=== PATIENT | male | born 1990 | race Caucasian/White ===

== ENCOUNTER 2018-05-03 13:43 | Day surgery (SDC) | payer OTHER, SELFPAY ==
--- NOTE | 2018-05-03 13:27 | P.HP_ITS ---
History of Present Illness Date Patient Seen: 05/03/18 Chief complaint: colonoscopy [id number] Narrative: 27-year-old male with a history of hemorrhoids and rectal bleeding here for further evaluation. Please refer to our office note 04/18/2018 for further details. The patient has no significant changes to his history and physical examination from that visit. Meds Allergies Allergy/AdvReac Type Severity Reaction Status Date / Time No Known Drug Allergies Allergy Verified 05/03/18 14:07 Review of Systems Review of Systems All systems reviewed & are unremarkable except as noted in HPI and below Exam Narrative Exam Narrative: General: Patient is well developed, not in apparent distress Cardiovascular: Regular rate and rhythm, no murmurs, rubs, or gallops; no evidence of edema; no palpable abdominal aortic aneurysm Gastrointestinal: Normoactive bowel sounds, soft, nontender, nondistended, no rebound tenderness, no hepatosplenomegaly, no evidence of hernia Assessment & Plan Plan: Assessment/Plan Narrative: 27-year-old male here for assessment of hemorrhoids and rectal bleeding. Regarding the procedure(s), the risks and potential complications, benefits, and alternatives (including not doing the procedure) were discussed with the patient. The risks include but are not limited to bleeding, splenic injury, infection, perforation which may require surgical intervention, missed lesions, and adverse reactions to sedative medicines. After a question and answer period , the patient agreed to proceed with the procedure(s) and gives informed consent.
[2018-05-03 14:08] VITALS: BP 141/91; PULSE 54; RESP 16; TEMP 36.1; O2SAT 100
[2018-05-03 14:09] VITALS: BMI 24.4
[2018-05-03] MEDS: SODIUM CHLORIDE 0.9% 1,000 ML 70 ML IV (14:15)
--- NOTE | 2018-05-03 15:20 | PM.OP.ENDO ---
Operative Date/Time/Diagnoses Date of procedure: 05/03/18 Procedure Notes Procedure in detail: Surgeon: Beni Cross MD Procedure: Colonoscopy Preoperative diagnosis: Rectal bleeding, hemorrhoids, anal pruritus Postoperative diagnosis: Anal fissure on rectal exam, hypertrophied anal papillae, small internal hemorrhoids Medications: Conscious sedation using 8 mg IV of Midazolam and 200 mcg IV of Fentanyl Preanesthesia Assessment An H and P was performed/updated and the Px?s ASA class is 1. The procedure was discussed in detail with the patient. The potential risks and complications including infection, bleeding, missed lesions, perforation, need for surgery in case of perforation, prolonged hospital stay, and were explained. A brief question and answer period was allotted and once all questions were answered, informed consent was obtained. The patient was brought back to the procedure room and placed on standard monitoring. The patient?s vital signs were monitored continuously throughout the entire procedure. Prior to starting, a timeout was performed to confirm the patient?s identity, allergies, medications, and procedure. Procedure in detail The patient was placed in left lateral decubitus position and once adequate sedation was obtained a MADINA was performed. The digital rectal examination did not reveal any palpable lesions. There was note of anal pain during the digital rectal examination in the anterior area suggesting an anterior anal fissure The tip of the colonoscope was placed in the anal canal and advanced with some difficulty due to a tortuous and looping colon which was rectified by reduction of the scope. The colonoscope was then advanced all the way to the cecum which was identified by the appendiceal orifice and the ileocecal valve. The terminal ileum was intubated to a distance of 5 cm from the ileocecal valve and this revealed no mucosal abnormality. The colonoscope was brought back to cecum and careful examination of all christine of the colon w was performed with irrigation of a residual stool. There is note of residual food particles in the right colon which could not be washed away despite irrigation with a large amount of water. There were no large polyps or masses seen throughout the entire colon. Retroflexion was performed in the rectum which revealed grade 1 internal hemorrhoids and hypertrophied anal papillae. The patient tolerated the procedure well and will be brought back to the recovery area to be discharged once criteria are met. The prep was judged to be fair. The withdrawal time was 8 min. The total physician intraservice time was 25 min. Complications There were no complications and estimated blood loss was zero. Recommendations: No clear indication for hemorrhoid banding at this point Resume previous diet Use Citrucel powder 2 tbsp twice a day for the next 2 months Use nitroglycerin ointment 2 to 3 times a day for the next 2 months (you need to use a gloved hand and insert a pea-sized amount into the anal canal using year pinky finger) Office follow up in 2 months or sooner depending on symptoms An emergency contact number was given to the patient for any complications related to the procedure
[2018-05-03] MEDS: MIDAZOLAM 5 MG/5 ML VIAL IV (15:26)
[2018-05-03] MEDS: fentaNYL 250 MCG/5 ML INJ IV (15:30)
[2018-05-03 15:54] VITALS: BP 109/64; PULSE 58; RESP 16; TEMP 36.3; O2SAT 100
--- NOTE | 2018-05-03 15:59 | PM.DS.1 ---
History of Present Illness Chief complaint: colonoscopy [id number] Narrative: 27-year-old male with a history of hemorrhoids and rectal bleeding here for further evaluation. Please refer to our office note 04/18/2018 for further details. The patient has no significant changes to his history and physical examination from that visit. Discharge Providers Discharge provider: Beni Cross MD Discharge Date: 05/03/18 Exam Vital Signs (past 8 hours): - 05/03/18 14:08 Temperature 96.9 F L Pulse Rate 54 L Respiratory Rate 16 Blood Pressure 141/91 H Pulse Oximetry 100 Oxygen Delivery Method Room Air Narrative Exam Narrative: General: Patient is well developed, not in apparent distress Cardiovascular: Regular rate and rhythm, no murmurs, rubs, or gallops; no evidence of edema; no palpable abdominal aortic aneurysm Gastrointestinal: Normoactive bowel sounds, soft, nontender, nondistended, no rebound tenderness, no hepatosplenomegaly, no evidence of hernia Discharge Plan Discharge Plan Patient Disposition: Home Discharge Med Rec/Prescriptions Discharge Orders: Discharge (Order); Ordered 05/03/18 Ordered By: Beni Cross Provider Discharge Instructions Diet: Diet as Tolerated Visit Report/Discharge Packet Stand Alone Forms: Surgery Discharge Discharge Data Attending Provider: Beni Cross
[2018-05-03 16:16] VITALS: BP 106/68; PULSE 59; TEMP 36.4; O2SAT 99
--- NOTE | 2018-05-03 16:53 | SUR.PHASEII ---
Abd soft, denied pain.
== END 2018-05-03 16:30 | disposition home or self-care (01) ==
PROVIDERS: Visit Provider Internal Medicine Gastroenterology
PROC: 0DJD8ZZ Inspection of Lower Intestinal Tract, Via Natural or Artificial Opening Endoscopic (ICD-10-PCS; CPT 45378; principal; 2018-05-03 14:30)
DX: K60.2 Anal fissure, unspecified (principal); K62.5 Hemorrhage of anus and rectum; K64.0 First degree hemorrhoids; K62.89 Other specified diseases of anus and rectum
CPT/HCPCS: 45378; J2250; J3010